=== PATIENT | female | born 1965 ===

== ENCOUNTER 2020-05-31 09:16 | Outpatient (CLI) | payer MEDICAID ==
--- NOTE | 2020-05-31 13:00 | Consultation ---
DATE OF CONSULTATION: 05/31/2020 CONSULTING PHYSICIAN: Hugo Casillas MD. CHIEF COMPLAINT: Blood seen in the stool. PAST MEDICAL HISTORY: None. PAST SURGICAL HISTORY: None. MEDICATIONS: Vitamins. FAMILY HISTORY: No family history of GI malignancies. SOCIAL HISTORY: The patient drinks and uses tobacco socially. ALLERGIES: No known allergies. REVIEW OF SYSTEMS: Positive for blood seen in the urine and stool. PHYSICAL EXAMINATION: HEENT: Normocephalic and atraumatic. Sclerae anicteric. NECK: Supple. No evidence of obvious lymphadenopathy. CARDIOVASCULAR: Regular rate and rhythm. Plus S1, S2. LUNGS: Clear to auscultation bilaterally. ABDOMEN: Positive bowel sounds. Soft and nontender. No rebound. No guarding. No peritoneal sign. EXTREMITIES: No cyanosis, no clubbing, no edema. ASSESSMENT AND PLAN: This is a 54-year-old female, who never had a colonoscopy, had seen blood in her stool. She needs a screening colonoscopy evaluation for blood in the stool. The patient was informed about the risks and benefits of colonoscopy. We are going to go ahead and schedule her when the authorization is obtained. Hugo Casillas M.D. DR: SONIA JOB#: [id number] CC:
== END 2020-05-31 11:16 | disposition home or self-care (01) ==
LOC: PAN 09:16
DX: K92.1 Melena (principal); R31.9 Hematuria, unspecified
CPT/HCPCS: G0463